=== PATIENT | female | born 2000 | race Caucasian/White ===

== ENCOUNTER 2019-02-26 12:01 | Emergency (ER) | payer MEDICAID ==
[2019-02-26 12:14] VITALS: BP 133/68
--- NOTE | 2019-02-26 12:17 | ER Document Report ---
HPI - HPI Time Seen by Provider: 02/26/19 12:08 Notes: Patient is a 18-year-old female with no significant past medical history aside from ganglion cyst of the left hand area who presents complaining of return of the ganglion cyst after had been surgically excised in the past. Patient states that she is having some pain and tingling in her hand because of it. 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 No other concerns or complaints. Denies any headache, fever, neck pain, URI, sore throat, chest pain, palpitations, syncope, cough, shortness of breath, wheeze, dyspnea, abdominal pain, nausea/vomiting/diarrhea, urinary retention, dysuria, hematuria, muscle paralysis/weakness, or rash. - ROS Systems Reviewed and Negative: Yes All other systems reviewed and negative Past Medical History - Social History Smoking Status: Unknown if Ever Smoked Family History: Reviewed & Not Pertinent Vertical Provider Document - CONSTITUTIONAL Agree With Documented VS: Yes Notes: PHYSICAL EXAMINATION: GENERAL: Well-appearing, well-nourished and in no acute distress. HEAD: Atraumatic, normocephalic. NECK: Normal range of motion, supple without lymphadenopathy. No midline tenderness. LUNGS: Breath sounds clear to auscultation bilaterally and equal. No wheezes rales or rhonchi. HEART: Regular rate and rhythm without murmurs, rubs, gallops. Musculoskeletal: Lt hand/wrist: + small cystic moveable mass noted consistent with ganglion cyst to the posterior proximal hand. No erythema, warmth, ecchymosis, deformity, or swelling noted. N/V intact distal. FROM to passive/active at the wrist/fingers. Strength 5+/5 to wireless sales associate. No scaphoid tendern ess. Tinel/phalen neg. No other bony tenderness. Gamekeeper negative. Extremities: No cyanosis, clubbing, or edema b/l. Peripheral pulses 2+. Capillary refill less than 3 seconds. NEUROLOGICAL: Normal speech, normal gait. Normal sensory, motor exams otherwise unremarkable PSYCH: Normal mood, normal affect. SKIN: see above. No rash Course - Re-evaluation Re-evalutation: 02/26/19 12:15 Patient is an afebrile, well-hydrated, 18-year-old female who presents to the ED with a ganglion cyst to the left hand without secondary bacterial infection noted. Vitals are acceptable without any significant tachycardia, tachypnea, or hypoxia. PE is otherwise unremarkable for any neurovascular compromise, obvious tendon/ligament rupture, obvious fracture/dislocation, septic joint. Patient is nontoxic-appearing. Cock-up splint given today. No other labs or imaging warranted at this time based on H&P. Conservative measures otherwise for symptoms. Recheck with your PCM in 3-5 days. Schedule an appointment with a hand specialist. Return to the ED with any worsening/concerning symptoms otherwise as reviewed in discharge. Patient is in agreement. Discharge - Discharge Clinical Impression: Ganglion cyst of finger of left hand Condition: Stable Disposition: HOME, SELF-CARE Instructions: Ganglion Cyst ([facility]) Additional Instructions: Rest, Ice, Compression, Elevation Tylenol as needed F/u with your PCP in 3-5 days for a recheck Call orthopedics to schedule an appointment for further evaluation and management Return to the ED with any worsening symptoms and/or development of fever, headache, chest pain, palpitations, syncope, shortness of breath, trouble breathing, abdominal pain, n/v/d, muscle weakness/paralysis, numbness/tingling, swelling, redness, or other worsening symptoms that are concerning to you. Prescriptions: Diclofenac Sodium [Voltaren] 4 gm TP QID PRN #100 gel..gm. PRN Reason: Forms: Elevated Blood Pressure Referrals: MALDONADO JAIN DO [ACTIVE STAFF] - Follow up as needed LENARD HERNANDEZ MD [NO LOCAL MD] - Follow up in 1 week
== END 2019-02-26 12:12 | disposition home or self-care (01) ==
LOC: ER 12:01
DX: M67.442 Ganglion, left hand (principal); Z98.890 Other specified postprocedural states
CPT/HCPCS: 99283; L3908

== ENCOUNTER 2019-04-27 22:01 | Emergency (ER) | payer MEDICAID ==
[2019-04-27 22:35] LABS: A TYPE INFLUENZA AG NEGATIVE (NEGATIVE); B INFLUENZA AG NEGATIVE (NEGATIVE)
--- NOTE | 2019-04-27 22:43 | RADIOLOGY REPORT (SQ) ---
EXAM DESCRIPTION: XR CHEST 1 VIEW COMPLETED DATE/TME: 04/27/2019 00:00 CLINICAL HISTORY: 18 years, Female, sob COMPARISON: None. NUMBER OF VIEWS: 1 TECHNIQUE: Portable chest LIMITATIONS: None. FINDINGS: The heart size is normal. Lungs are clear. No pneumothorax IMPRESSION: Negative chest copyright 2011 [employer]- All Rights Reserved
[2019-04-27 23:00] LABS: ABSOLUTE EOSINOPHILS # (AUTO) 0.2 10^3/uL (0.0-0.6); ABSOLUTE LYMPHOCYTES (AUTO) 1.1 10^3/uL (0.5-4.7); ABSOLUTE MONOCYTES (AUTO) 0.6 10^3/uL (0.1-1.4); ABSOLUTE NEUT (AUTO) 4.2 10^3/uL (1.7-8.2); BASOPHILS % (AUTO) 0.6 % (0-2); EOSINOPHILS % (AUTO) 2.5 % (0-6); HEMATOCRIT 38.1 % (36.0-47.0); HEMOGLOBIN 13.4 g/dL (12.0-15.5); LYMPHOCYTES % (AUTO) 17.4 % (13-45); MEAN CORPUSCULAR HEMOGLOBIN 29.5 pg (27.0-33.4); MEAN CORPUSCULAR VOLUME 84 fl (80-97); MONOCYTES % (AUTO) 10.6 % (3-13); PLATELET COUNT 204 10^3/uL (150-450); RED BLOOD COUNT 4.53 10^6/uL (3.72-5.28); RED CELL DISTRIBUTION WIDTH 12.9 % (11.5-14.0); SEGMENTED NEUTROPHILS % (AUTO) 68.9 % (42-78); TOTAL CELLS COUNTED % (AUTO) 100 %; WHITE BLOOD COUNT 6.1 10^3/uL (4.0-10.5)
[2019-04-27] MEDS ORDERED: NORMAL SALINE 1000 ML 1,000 ML IV ONE (23:05)
--- NOTE | 2019-04-27 23:27 | ER Document Report ---
ED Respiratory Problem - General Chief Complaint: Shortness Of Breath Stated Complaint: RESPIRATORY Time Seen by Provider: 04/27/19 22:22 Primary Care Provider: YEMI ROCHA PA-C [Primary Care Provider] - Follow up as needed Mode of Arrival: Ambulatory Information source: Patient Notes: Patient is a 18-year-old female with a history of asthma presenting to the ergency department with shortness of breath and dyspnea on exertion. Patient reports she has had a fever and cough over the last 2 days. She states she has been using her albuterol inhaler more than usual. She personally denies any recent travel but states she has had close contact with someone who recently traveled from [place]. Patient took Tylenol just prior to arrival to the emergency department. She reports that her fever was greater than 101. TRAVEL OUTSIDE OF THE [place] IN LAST 30 DAYS: No - Related Data Allergies/Adverse Reactions: amoxicillin Allergy (Intermediate, Verified 02/26/19 12:08) Hives clindamycin Allergy (Intermediate, Verified 02/26/19 12:08) Hives Penicillins Allergy (Intermediate, Verified 02/26/19 12:08) Hives NSAIDS (Non-Steroidal Anti-Inflamma Adverse Reaction (Severe, Verified 02/26/19 12:08) GI upset Home Medications: Albuterol Past Medical History - General Information source: Patient - Social History Smoking Status: Never Smoker Frequency of alcohol use: None Drug Abuse: None Family History: Reviewed & Not Pertinent Patient has suicidal ideation: No Patient has homicidal ideation: No Pulmonary Medical History: Reports: Hx Asthma Past Surgical History: Reports: Hx Orthopedic Surgery - lt hand ganglion cyst - Immunizations Immunizations up to date: Yes Review of Systems - Review of Systems Constitutional: Chills, Fever EENT: No symptoms reported Cardiovascular: Lightheaded Respiratory: Cough, Short of breath Gastrointestinal: Diarrhea - X2 days Genitourinary: No symptoms reported Female Genitourinary: No symptoms reported Musculoskeletal: Other - Body aches Skin: No symptoms reported Hematologic/Lymphatic: No symptoms reported Neurological/Psychological: No symptoms reported Physical Exam - Vital signs Vitals: Temp Pulse BP 100.5 F H 122 H 119/61 04/27/19 22:15 04/27/19 22:15 04/27/19 22:15 - Notes Notes: PHYSICAL EXAMINATION: GENERAL: Flushed, mildly ill-appearing. HEAD: Atraumatic, normocephalic. EYES: Pupils equal round and reactive to light, extraocular movements intact, conjunctiva are normal. ENT: Nares patent, oropharynx clear without exudates. Moist mucous membranes. NECK: Normal range of motion, supple without lymphadenopathy LUNGS: Breath sounds clear to auscultation bilaterally and equal. No wheezes rales or rhonchi. Tachypnea. HEART: Tachycardic ABDOMEN: Soft, nontender, nondistended abdomen. No guarding, no rebound. No masses appreciated. Female : deferred Musculoskeletal: Normal range of motion, no pitting or edema. No cyanosis. NEUROLOGICAL: Cranial nerves grossly intact. Normal sensory, motor exams PSYCH: Normal mood, normal affect. SKIN: Warm, Dry, normal turgor, no rashes or lesions noted. Course - Re-evaluation Re-evalutation: 04/28/19 01:00 Laboratory 04/27/19 04/27/19 04/27/19 22:05 22:37 22:37 WBC 6.1 RBC 4.53 Hgb 13.4 Hct 38.1 MCV 84 MCH 29.5 MCHC 35.0 RDW 12.9 Plt Count 204 Lymph % (Auto) 17.4 Maverick % (Auto) 10.6 Eos % (Auto) 2.5 Baso % (Auto) 0.6 Absolute Neuts (auto) 4.2 Absolute Lymphs (auto) 1.1 Absolute Monos (auto) 0.6 Absolute Eos (auto) 0.2 Absolute Basos (auto) 0.0 Seg Neutrophils % 68.9 Sodium Potassium Chloride Carbon Dioxide Anion Gap BUN Creatinine Est GFR ( Amer) Est GFR (MDRD) Non-Af Glucose Calcium Total Bilirubin Direct Bilirubin Neonat Total Bilirubin Neonat Direct Bilirubin Neonat Indirect Bili AST ALT Alkaline Phosphatase Total Protein Albumin Urine Color YELLOW Urine Appearance SLIGHTLY-CLOUDY Urine pH 6.0 Ur Specific Blue Eye 1.009 Urine Protein NEGATIVE Urine Glucose (UA) NEGATIVE Urine Ketones NEGATIVE Urine Blood LARGE H Urine Nitrite POSITIVE H Urine Bilirubin NEGATIVE Urine Urobilinogen NEGATIVE Ur Leukocyte Esterase SMALL H Urine WBC (Auto) 41 Urine RBC (Auto) 68 U Hyaline Cast (Auto) 7 Urine Bacteria (Auto) 3+ Squamous Epi Cells Auto 1 Urine Mucus (Auto) MANY Urine Ascorbic Acid NEGATIVE Influenza A (Rapid) NEGATIVE Influenza B (Rapid) NEGATIVE Group A Strep Rapid 04/27/19 04/27/19 22:37 23:07 WBC RBC Hgb Hct MCV MCH MCHC RDW Plt Count Lymph % (Auto) Maverick % (Auto) Eos % (Auto) Baso % (Auto) Absolute Neuts (auto) Absolute Lymphs (auto) Absolute Monos (auto) Absolute Eos (auto) Absolute Basos (auto) Seg Neutrophils % Sodium 136.5 L Potassium 3.7 Chloride 102 Carbon Dioxide 24 Anion Gap 11 BUN 9 Creatinine 0.58 Est GFR ( Amer) > 60 Est GFR (MDRD) Non-Af > 60 Glucose 93 Calcium 9.6 Total Bilirubin 0.5 Direct Bilirubin 0.2 Neonat Total Bilirubin Not Reportable Neonat Direct Bilirubin Not Reportable Neonat Indirect Bili Not Reportable AST 34 ALT 20 Alkaline Phosphatase 69 Total Protein 8.5 H Albumin 4.7 Urine Color Urine Appearance Urine pH Ur Specific Blue Eye Urine Protein Urine Glucose (UA) Urine Ketones Urine Blood Urine Nitrite Urine Bilirubin Urine Urobilinogen Ur Leukocyte Esterase Urine WBC (Auto) Urine RBC (Auto) U Hyaline Cast (Auto) Urine Bacteria (Auto) Squamous Epi Cells Auto Urine Mucus (Auto) Urine Ascorbic Acid Influenza A (Rapid) Influenza B (Rapid) Group A Strep Rapid NEGATIVE Chest X-Ray 04/27/19 00:00 IMPRESSION: Negative chest copyright 2010 [employer]- All Rights Reserved Patient status has improved since arrival to the emergency department. She received a 1 L normal saline bolus. Her work of breathing has improved. Due to her symptoms she was considered for COVID testing. Patient consented to this. She also has nitrite positive urine, she will be started on antibiotics for this. Urine culture pending. Patient will be discharged home and will self isolate at home, she was given a copy of all necessary paperwork. - Vital Signs Vital signs: Temp Pulse Resp BP Pulse Ox 100.5 F H 122 H 27 H 107/78 99 04/27/19 22:15 04/27/19 22:15 04/28/19 01:01 04/28/19 01:01 04/28/19 01:01 - Laboratory Result Diagrams: 04/27/19 22:37 04/27/19 22:37 Laboratory results interpreted by me: 04/27/19 04/27/19 22:37 22:37 Sodium 136.5 L Total Protein 8.5 H Urine Blood LARGE H Urine Nitrite POSITIVE H Ur Leukocyte Esterase SMALL H Discharge - Discharge Clinical Impression: covid testing, Shortness of breath Fever Qualifiers: Fever type: unspecified Qualified Code(s): R50.9 - Fever, unspecified UTI (urinary tract infection) Qualifiers: Urinary tract infection type: site unspecified Hematuria presence: without hematuria Qualified Code(s): N39.0 - Urinary tract infection, site not specified Condition: Stable Disposition: HOME, SELF-CARE Additional Instructions: As discussed you were tested today for COVID-19. You must self quarantine until your test results have returned if positive you must of quarantine for total of 14 days. The health department will be in contact with you regarding this. Please make sure you take antibiotics for your urinary tract infection. Please return to the emergency department with any new or worsening symptoms such as life-threatening shortness of breath. Please call ahead and let us know that you are a person under investigation so that we can bring you into the department safely. Prescriptions: Nitrofurantoin Monohyd/M-Cryst [Macrobid 100 mg Capsule] 100 mg PO BID #14 cap Referrals: YEMI ROCHA PA-C [Primary Care Provider] - Follow up as needed
[2019-04-27 23:34] LABS: APPEARANCE,URINE SLIGHTLY-CLOUDY; BILIRUBIN,URINE NEGATIVE (NEGATIVE); COLOR,URINE YELLOW; GLUCOSE, URINE NEGATIVE (NEGATIVE); KETONES,URINE NEGATIVE (NEGATIVE); LEUKOCYTE ESTERASE,URINE SMALL (NEGATIVE); NITRITE,URINE POSITIVE (NEGATIVE); PROTEIN,URINE NEGATIVE (NEGATIVE); URINE SPECIFIC GRAVITY 1.009; UROBILINOGEN,URINE NEGATIVE mg/dL (<2.0)
[2019-04-27 23:40] LABS: ALBUMIN 4.7 g/dL (3.5-5.0); ALKALINE PHOSPHATASE 69 U/L (38-126); ANION GAP 11 (5-19); ASPARTATE AMINO TRANSFERASE 34 U/L (14-36); BILIRUBIN,DIRECT 0.2 mg/dL (0.0-0.4); BILIRUBIN,TOTAL 0.5 mg/dL (0.2-1.3); BLOOD UREA NITROGEN 9 mg/dL (7-20); CALCIUM 9.6 mg/dL (8.4-10.2); CARBON DIOXIDE 24 mmol/L (22-30); CHLORIDE 102 mmol/L (98-107); GLUCOSE 93 mg/dL (75-110); POTASSIUM 3.7 mmol/L (3.6-5.0); TOTAL PROTEIN 8.5 g/dL (6.3-8.2)
[2019-04-28 01:24] VITALS: BP 107/78
[2019-04-28] MEDS ORDERED: ALBUTEROL SULFATE HFA (90 MCG/PUFF) 8 GM MDI (1 MDI/ER DISP) IH ONE (01:27)
--- NOTE | 2019-04-28 05:49 | EKG REPORT ---
SEVERITY:- NORMAL ECG - SINUS RHYTHM : Confirmed by: Vale Reagan MD 28-Apr-2019 05:48:06
== END 2019-04-28 01:52 | disposition home or self-care (01) ==
LOC: ER 22:01
DX: J45.909 Unspecified asthma, uncomplicated (principal); N39.0 Urinary tract infection, site not specified; R06.02 Shortness of breath; R50.9 Fever, unspecified; R05 Cough; R19.7 Diarrhea, unspecified; R52 Pain, unspecified; R42 Dizziness and giddiness; R00.0 Tachycardia, unspecified; Z79.899 Other long term (current) drug therapy; Z88.0 Allergy status to penicillin; Z88.1 Allergy status to other antibiotic agents; Z20.828 Contact with and (suspected) exposure to other viral communicable diseases
CPT/HCPCS: 93005; 99285; 96360; 36415; 87070; 87086; 87880; 85025; 87635; 87088; 80053; 81001; 87186; 87804; 71045; 93010; J7030; J3490

== ENCOUNTER 2019-09-12 05:31 | Emergency (ER) | payer MEDICAID ==
[2019-09-12 06:10] LABS: ABSOLUTE EOSINOPHILS # (AUTO) 0.2 10^3/uL (0.0-0.6); ABSOLUTE LYMPHOCYTES (AUTO) 1.6 10^3/uL (0.5-4.7); ABSOLUTE MONOCYTES (AUTO) 0.7 10^3/uL (0.1-1.4); ABSOLUTE NEUT (AUTO) 7.1 10^3/uL (1.7-8.2); BASOPHILS % (AUTO) 0.4 % (0-2); EOSINOPHILS % (AUTO) 1.9 % (0-6); HEMATOCRIT 34.8 % (36.0-47.0); HEMOGLOBIN 11.8 g/dL (12.0-15.5); LYMPHOCYTES % (AUTO) 16.7 % (13-45); MEAN CORPUSCULAR HEMOGLOBIN 29.1 pg (27.0-33.4); MEAN CORPUSCULAR VOLUME 86 fl (80-97); MONOCYTES % (AUTO) 7.5 % (3-13); PLATELET COUNT 294 10^3/uL (150-450); RED BLOOD COUNT 4.06 10^6/uL (3.72-5.28); RED CELL DISTRIBUTION WIDTH 13.3 % (11.5-14.0); SEGMENTED NEUTROPHILS % (AUTO) 73.5 % (42-78); TOTAL CELLS COUNTED % (AUTO) 100 %; WHITE BLOOD COUNT 9.7 10^3/uL (4.0-10.5)
[2019-09-12] MEDS ORDERED: NORMAL SALINE 1000 ML 1,000 ML IV ONE (06:23)
[2019-09-12] MEDS ORDERED: ONDANSETRON HCL INJ/PF 4 MG/2 ML SDV IV ONE (06:24)
[2019-09-12] MEDS ORDERED: MORPHINE SULFATE 10 MG/ML INJ IV ONE (06:24)
--- NOTE | 2019-09-12 06:29 | ER Document Report ---
ED General - General Chief Complaint: Abdominal Pain Stated Complaint: ABDOMINAL PAIN,CHILLS,FEVER,NAUSEA Time Seen by Provider: 09/12/19 06:06 Primary Care Provider: YEMI ROCHA PA-C [Primary Care Provider] - Follow up as needed TRAVEL OUTSIDE OF THE [place] IN LAST 30 DAYS: No - HPI Notes: Chief complaint: Abdomen/pelvic pain History of present illness: 19-year-old female 3 AB 3 with last menses 2 weeks ago characterized by heavy clotting and prolonged bleeding now resolved but she has persistent cramping and pain in pelvis and right lower quadrant of abdomen. Patient has not taken any [id number] medications and is on no regular prescription medication. She denies fever or chills. She denies dys uria. She denies nausea vomiting or diarrhea. She states that she has had past problems with somewhat similar pain related to endometriosis and also has previously had surgery for right ovarian cyst. She still has her appendix. Pain began after menses about 2 weeks ago. It is been intermittent. No specific precipitating or alleviating factors identified. Is described as cramping in nature. Waxing and waning in intensity. Presently about an 8/10 level of intensity. Medical history is otherwise remarkable only for history of mild asthma. Patient recently quit smoking. Consumes alcohol socially. Endorses use of marijuana but denies any other drug use. No current prescription medications. Multiple allergies including amoxicillin, penicillin and clindamycin. Also says that she has an intolerance for NSAIDs which caused severe GI upset. - Related Data Allergies/Adverse Reactions: amoxicillin Allergy (Intermediate, Verified 02/26/19 12:08) Hives clindamycin Allergy (Intermediate, Verified 02/26/19 12:08) Hives Penicillins Allergy (Intermediate, Verified 02/26/19 12:08) Hives NSAIDS (Non-Steroidal Anti-Inflamma Adverse Reaction (Severe, Verified 02/26/19 12:08) GI upset Past Medical History - General Information source: Patient, [facility] Records - Social History Smoking Status: Former Smoker Frequency of alcohol use: Social Drug Abuse: Marijuana Family History: Reviewed & Not Pertinent - Past Medical History Cardiac Medical History: Reports: None Pulmonary Medical History: Reports: Hx Asthma Endocrine Medical History: Denies: Hx Diabetes Mellitus Type 1, Hx Diabetes Mellitus Type 2 Renal/ Medical History: Reports: Hx Ovarian Cysts, Other - Endometriosis Past Surgical History: Reports: Hx Gynecologic Surgery, Hx Orthopedic Surgery - lt hand ganglion cyst - Immunizations Immunizations up to date: Yes Review of Systems - Review of Systems Notes: Constitutional: Low-grade subjective fever. HENT: Negative for sore throat. Eyes: Negative for visual changes. Cardiovascular: Negative for chest pain. Respiratory: Negative for shortness of breath. Gastrointestinal: As per HPI. Genitourinary: As per HPI. Musculoskeletal: Negative for back pain. Skin: Negative for rash. Neurological: Negative for headaches, weakness or numbness. 10 point ROS negative except as marked above and in HPI. Physical Exam - Vital signs Vitals: Temp Pulse Resp BP Pulse Ox 98.7 F 105 H 16 116/54 L 100 09/12/19 05:37 09/12/19 05:37 09/12/19 05:37 09/12/19 05:37 09/12/19 05:37 - Notes Notes: GENERAL: Slender female approximately stated age appearing in moderate pain drawn into a position. SKIN: Good turgor no rashes. HEAD: Normocephalic atraumatic. EYES: PERRLA. EOMI. Conjunctivae and sclerae clear. EARS: CANALS AND TMS CLEAR. NOSE: CLEAR. MOUTH: Moist mucosa. Good dentition. No stridor or edema. No drooling. NECK: Supple. No masses or thyromegaly. No adenopathy. Carotids 2+ without bruits. No JVD. BACK: Symmetrical without tenderness. CHEST: Respirations unlabored. Breath sounds clear and symmetrical. HEART: Regular rhythm. No murmur gallop or rub. ABDOMEN: Moderate tenderness right lower quadrant. Soft without masses, organomegaly or rebound. Bowel sounds normally active. No bruits. GENITALIA: Deferred. EXTREMITIES: No edema. No calf tenderness. Cap refill less than 1.5 seconds. Dorsalis pedis and posterior tibial pulses 3+ and symmetrical. NEUROLOGICAL: GCS 15. Alert and oriented x3. Fluent speech. Cranial nerves II through XII intact. Sensorimotor and cerebellar normal. Normal tone. PSYCHIATRIC: Appropriate affect. Course - Re-evaluation Re-evalutation: 09/12/19 06:32 Differential diagnosis: Endometriosis, ureterolithiasis, urinary tract in fection, ectopic , diverticulitis, ovarian cyst, appendicitis, ovarian torsion. CT abdomen pelvis with IV and oral contrast requested. N.p.o. IV normal saline. Other studies include urine drug screen, urinalysis, test, comprehensive metabolic profile and CBC. 09/12/19 10:30 test was negative. Urine drug screen is positive for presence of THC. Urinalysis is normal. CBC shows a normal white count with mild anemia hemoglobin 11.8. Comprehensive metabolic profile normal. Patient received 2 L of normal saline IV. Following this she demonstrated normal orthostatic vital signs. Symptoms are resolved. She appears stable for discharge. 09/12/19 10:36 Findings, clinical impression and plan of treatment have been discussed with patient/family. Understanding of current findings and recommendations has been acknowledged by them and there is agreement regarding disposition and follow-up. - Vital Signs Vital signs: Temp Pulse Resp BP Pulse Ox 100.1 F 105 H 17 107/64 100 09/12/19 05:57 09/12/19 05:37 09/12/19 08:01 09/12/19 08:01 09/12/19 08:01 - Laboratory Result Diagrams: 09/12/19 05:55 09/12/19 05:55 Laboratory results interpreted by me: 09/12/19 09/12/19 05:55 05:55 Hgb 11.8 L Hct 34.8 L Sodium 136.0 L BUN 6 L Creatinine 0.51 L Glucose 134 H - Diagnostic Test Radiology reviewed: Reports reviewed - CT abdomen pelvis with IV and oral contr ast per radiologist: Small left-sided ovarian cyst. Normal appendix. Study otherwise unremarkable. Discharge - Discharge Clinical Impression: Endometriosis Clinical Impression: (Ruled Out): POTS (postural orthostatic tachycardia syndrome) Condition: Stable Disposition: HOME, SELF-CARE Additional Instructions: Endometriosis Your pain seems to be due to endometriosis. This is a condition where small bits of tissue from inside the uterus grow outside the uterus. It's most commonly found on the ovaries and on the ligaments that support the tubes. Endometriosis causes pelvic pain, often worse just before and during the period. There may be pain with intercourse. Fertility may be reduced. There are no simple tests that diagnose endometriosis. We prescribe treatment if the symptoms suggest endometriosis. A laparoscopy can show the small islands of endometrial tissue outside the uterus. This procedure is reserved for patients who continue to suffer severe pain. control pills can ease symptoms of endometriosis in most patients. Other hormonal treatment may be prescribed by a pit clerk. When the pain flares, antiinflammatory medication such as ibuprofen can be helpful. Prescription pain pills should be reserved for severe flare-ups -- not for daily pain. Return if you develop worsening pain, unexplained vaginal bleeding, fever, urinary tract symptoms, or vomiting. Return here as needed for new or worsening symptoms: Pain that is worsening or unimproved Uncontrolled vomiting High fever or shaking chills Overall worsening Prescriptions: Tramadol HCl [Ultram 50 mg Tablet] 50 mg PO Q4HP PRN #12 tab PRN Reason: Ondansetron [Zofran Odt 4 mg Tablet] 1 - 2 tab PO Q4H PRN #15 tab.rapdis PRN Reason: For Nausea/Vomiting Referrals: YEMI ROCHA PA-C [Primary Care Provider] - Follow up as needed
[2019-09-12 06:37] LABS: ALBUMIN 3.6 g/dL (3.5-5.0); ALKALINE PHOSPHATASE 59 U/L (38-126); ANION GAP 7 (5-19); ASPARTATE AMINO TRANSFERASE 16 U/L (14-36); BILIRUBIN,TOTAL 0.5 mg/dL (0.2-1.3); BLOOD UREA NITROGEN 6 mg/dL (7-20); CALCIUM 8.7 mg/dL (8.4-10.2); CARBON DIOXIDE 27 mmol/L (22-30); CHLORIDE 102 mmol/L (98-107); GLUCOSE 134 mg/dL (75-110); POTASSIUM 3.6 mmol/L (3.6-5.0); TOTAL PROTEIN 7.1 g/dL (6.3-8.2)
[2019-09-12 07:04] LABS: APPEARANCE,URINE CLEAR; BILIRUBIN,URINE NEGATIVE (NEGATIVE); COLOR,URINE YELLOW; GLUCOSE, URINE NEGATIVE (NEGATIVE); KETONES,URINE NEGATIVE (NEGATIVE); LEUKOCYTE ESTERASE,URINE NEGATIVE (NEGATIVE); NITRITE,URINE NEGATIVE (NEGATIVE); PROTEIN,URINE NEGATIVE (NEGATIVE); URINE SPECIFIC GRAVITY 1.015; UROBILINOGEN,URINE NEGATIVE mg/dL (<2.0)
[2019-09-12 07:22] LABS: URINE AMPHETAMINES SCREEN NEGATIVE; URINE BARBITURATES SCREEN NEGATIVE; URINE BENZODIAZEPINES SCREEN NEGATIVE; URINE COCAINE SCREEN NEGATIVE; URINE MARIJUANA (THC) SCREEN UNCONFIRMED POSITIVE; URINE METHADONE SCREEN NEGATIVE; URINE PHENCYCLIDINE SCREEN NEGATIVE
--- NOTE | 2019-09-12 09:33 | RADIOLOGY REPORT (SQ) ---
EXAM DESCRIPTION: CT ABD/PELVIS WITH IV ORAL IMAGES COMPLETED DATE/TIME: 09/12/2019 8:58 am REASON FOR STUDY: Right lower quadrant abdominal pain COMPARISON: None. TECHNIQUE: CT scan of the abdomen and pelvis performed with intravenous and oral contrast using alyssa ana scanning technique with dynamic intravenous contrast injection. Images reviewed with lung, soft t issue, and bone windows. Reconstructed coronal and sagittal MPR images reviewed. Delayed images for e valuation of the urinary system also acquired. All images stored on PACS. All CT scanners at this facility use dose modulation, iterative reconstruction, and/or weight based d osing when appropriate to reduce radiation dose to as low as reasonably achievable (ALARA). [facility]: Dose Right [facility]: CareDose [facility]: Dose Right [facility]: Teradose 4D [facility]: [employer] CONTRAST TYPE AND DOSE: contrast/concentration: Isovue 350.00 mmol/ml; Total Contrast Delivered: 56. 0 ml; Total Saline Delivered: 65.0 ml RENAL FUNCTION: None required. The patient is less than 50 years old. RADIATION DOSE: CT Rad equipment meets quality standard of care and radiation dose reduction techniq ues were employed. CTDIvol: 4.8 - 5.0 mGy. DLP: 502 mGy-cm.. LIMITATIONS: None. FINDINGS: LOWER CHEST: No significant findings. No nodules or infiltrates. LIVER: Normal size. No masses. No dilated ducts. SPLEEN: Normal size. No focal lesions. PANCREAS: No masses. No significant calcifications. No adjacent inflammation or peripancreatic fluid collections. Pancreatic duct not dilated. GALLBLADDER: No identified stones by CT criteria. No inflammatory changes to suggest cholecystitis. ADRENAL GLANDS: No significant masses or asymmetry. RIGHT KIDNEY AND URETER: No solid masses. No significant calcification. No hydronephrosis or hydroure ter. LEFT KIDNEY AND URETER: Very slight fullness in the left renal collecting system, nonspecific. No ob structing stones detected. AORTA AND VESSELS: No aneurysm. No dissection. Renal arteries, SMA, celiac without stenosis. RETROPERITONEUM: No retroperitoneal adenopathy, hemorrhage or masses. BOWEL AND PERITONEAL CAVITY: Moderate proximal colonic stool. No suspicious wall thickening. No mec hanical bowel obstruction or abnormal gas. APPENDIX: Incompletely opacified with oral contrast. Normal as assessed. PELVIS: 1.8 cm left ovarian cyst looks fairly simple. Suspect minimal free fluid in the pelvis. ABDOMINAL WALL: No masses. No hernias. BONES: No significant or acute findings. OTHER: No other significant finding. IMPRESSION: 1. Left ovarian cysts, unlikely to be of clinical significance unless the patient has pelvic symptoms . Probable physiologic mild free fluid also in the pelvis. 2. No evidence of appendicitis. 3. Minimal left hydronephrosis. This could be related to recently passed stone. Less likely related to pyelonephritis. TECHNICAL DOCUMENTATION: JOB ID: [id number] Quality ID # [id number]: Final reports with documentation of one or more dose reduction techniques (e.g., Au tomated exposure control, adjustment of the mA and/or kV according to patient size, use of iterative reconstruction technique) 2010 [employer]- All Rights Reserved Reading location - IP/workstation name: [email or web address]
[2019-09-12 11:07] VITALS: BP 114/70
== END 2019-09-12 11:23 | disposition home or self-care (01) ==
LOC: ER 05:31
DX: N80.9 Endometriosis, unspecified (principal); N83.202 Unspecified ovarian cyst, left side; R10.2 Pelvic and perineal pain; R10.31 Right lower quadrant pain; Z88.0 Allergy status to penicillin; Z88.3 Allergy status to other anti-infective agents
CPT/HCPCS: 99284; 96361; 96374; 96375; 36415; 83690; 84703; 85025; 80053; 81001; 80307; 74177; J2270; J2405; J7030